=== PATIENT | female | born 1990 | race Caucasian/White ===

== ENCOUNTER 2022-03-20 02:05 | Emergency (ER) | payer OTHER ==
[~2022-03-20] VITALS: Ht 162.6 cm; Wt 63.5 kg
[2022-03-20 02:05] VITALS: BP 122/93
--- NOTE | 2022-03-20 02:06 | NUR ---
Dr. Mckeon at Chair C to exam patient.
[2022-03-20] MEDS ORDERED: ONDANSETRON 4 MG TAB PO ONE (02:15)
[2022-03-20] MEDS ORDERED: KETOROLAC 60 MG/2 ML VIAL IM ONE (02:15)
[2022-03-20 02:48] VITALS: BP 122/93
--- NOTE | 2022-03-20 02:48 | NUR ---
Patient D/C to Custody.
== END 2022-03-20 02:48 ==
LOC: MED 02:05
DX: R10.13 Epigastric pain (principal); R11.0 Nausea; Z02.89 Encounter for other administrative examinations; V89.2XXA Person injured in unspecified motor-vehicle accident, traffic, initial encounter; Y93.89 Activity, other specified; Y92.89 Other specified places as the place of occurrence of the external cause; Y99.8 Other external cause status
CPT/HCPCS: 96372; 99283; J1885; Q0162